=== PATIENT | female | born 1955 | race Caucasian/White ===

== ENCOUNTER 2017-08-14 01:41 | Emergency (ER) | payer OTHER ==
[~2017-08-14] VITALS: Ht 167.6 cm; Wt 102.7 kg
[~2017-08-14 01:41] MED LIST: BUSPIRONE HCL10 MG PO; IRON325 M1 PO; LOPRESSOR50 MG PO; NAPROSYN500 MG PO; PRILOSEC20 MG PO; PRINZIDE 20-121 EACH PO; SEROQUEL XR50 MG PO; SEROQUEL200 MG PO; SIMVASTATIN20 MG PO; TEGRETOL200 MG PO
[2017-08-14 02:37] LABS: BASOPHIL COUNT 0.1 K/uL (0-0.1); EOSINOPHIL (%) 0.9 % (0-5); EOSINOPHIL COUNT 0.1 K/uL (0-0.3); HEMATOCRIT 39.6 % (36.0-46.0); IMMATURE GRANULOCYTE (%) 0.6 % (0.0-0.7); IMMATURE GRANULOCYTE COUNT 0.1 K/uL; INSTRUMENT ABS NEUTROPHIL CT 8.4 K/uL; LYMPHOCYTE COUNT 4.2 K/uL (1.0-2.8); MCH 31.4 PG (29.0-34.0); MCHC 33.1 G/DL (30.0-36.0); MEAN PLAT.VOLUME 9.8 uM^3 (9.5-12.4); MONOCYTE (%) 7.8 % (3-12); MONOCYTE COUNT 1.1 K/uL (0-0.8); NEUTROPHIL (%) 60.5 % (45-76); NEUTROPHIL COUNT 8.4 K/uL (1.8-6.4); PLATELET COUNT 229 K/uL (156-360); RBC DIS.WIDTH-CV 12.5 % (11.8-14.6); RBC DIS.WIDTH-SD 43.8 % (39-53); RED BLOOD COUNT 4.17 M/uL (3.80-5.20); WHITE BLOOD COUNT 13.9 K/uL (4.1-10.2)
[2017-08-14 02:46] LABS: CHLORIDE 96 mEq/L (99-109); POTASSIUM 3.5 mEq/L (3.7-5.4); SODIUM 135 mEq/L (136-147)
[2017-08-14 02:48] LABS: GLUCOSE 113 mg/dL (70-99)
[2017-08-14 02:49] LABS: ANION GAP 13 MEQ/L (2-14)
[2017-08-14 02:50] LABS: TOTAL BILIRUBIN 0.3 mg/dL (0.0-1.0)
[2017-08-14 02:51] LABS: ALKALINE PHOSPHATASE 68 IU/L (3-129)
[2017-08-14 02:52] LABS: GFR ESTIMATE (CALCULATED) 44 mL/min/
[2017-08-14 02:53] LABS: UREA NITROGEN (BUN) 25 mg/dL (9-23)
[2017-08-14 02:55] LABS: CREATINE KINASE 65 IU/L (1-294); TOTAL CK 65 IU/L (1-294)
[2017-08-14 05:15] LABS: TROP-I INTERPRETATION NEGATIVE; TROPONIN-I < 0.01 ng/mL (0.0-0.30)
[2017-08-14 06:15] LABS: ADD MIUA? YES; BILIRUBIN NEGATIVE; BLOOD NEGATIVE; COLOR YELLOW ((YELLOW)); GLUCOSE (STRIP) NEGATIVE; KETONES NEGATIVE; LEUKOCYTES NEGATIVE; NITRITE NEGATIVE; PROTEIN (STRIP) NEGATIVE; UROBILINOGEN 0.2 MG/DL (0.2-1.0)
[2017-08-14] MEDS ORDERED: XANAX0.25 MG PO (06:19)
[2017-08-14] MEDS ORDERED: DEPAKOTE250 MG PO (06:20)
[2017-08-14] MEDS ORDERED: CALTRATE 600 +1 EAC2 PO (06:20)
[2017-08-14] MEDS ORDERED: DEPAKOTE500 MG PO (06:20)
[2017-08-14] MEDS ORDERED: MIRALAX17 GM PO (06:21)
[2017-08-14] MEDS ORDERED: MELOXICAM7.5 MG PO (06:21)
[2017-08-14 06:22] LABS: BACTERIA RARE /HPF; EPITHELIAL CELLS RARE /HPF; MUCUS TRACE /LPF; RED BLOOD CELLS 0-5 /HPF (0-5); UCUL ADDED? NO; WHITE BLOOD CELLS 0-5 /HPF (0-5)
[2017-08-14] MEDS ORDERED: TYLENOL REGULA325 MG PO (06:22)
[2017-08-14] MEDS ORDERED: EFFEXOR XR75 MG PO (06:22)
[2017-08-14] MEDS ORDERED: PERCOCET 5/31 TABLET PO (06:23)
[2017-08-14] MEDS ORDERED: NYATA15 GM TP (06:23)
[2017-08-14 06:31] LABS: TROP-I INTERPRETATION NEGATIVE; TROPONIN-I < 0.01 ng/mL (0.0-0.30)
[2017-08-14 09:21] VITALS: BP 102/67
== END 2017-08-14 09:22 | disposition home or self-care (01) ==
LOC: EME → EDBD 01:41 → EDSEX 01:41 → EME 09:22
PROVIDERS: Emergency Medicine
DX: R07.89 Other chest pain (principal); M79.672 Pain in left foot; M79.605 Pain in left leg; I10 Essential (primary) hypertension; E78.5 Hyperlipidemia, unspecified; F79 Unspecified intellectual disabilities; E66.9 Obesity, unspecified; Z68.36 Body mass index [BMI] 36.0-36.9, adult
CPT/HCPCS: 71010; 80053; 81003; 82550; 82553; 83735; 84484; 85025; 93005; 99281; 99284

== ENCOUNTER 2018-01-14 16:43 | Emergency (ER) | payer OTHER ==
[~2018-01-14] VITALS: Ht 167.6 cm; Wt 95.9 kg
[~2018-01-14 16:43] MED LIST changes: +CALTRATE 600 +1 EAC2 PO; +DEPAKOTE250 MG PO; +DEPAKOTE500 MG PO; +EFFEXOR XR75 MG PO; +MELOXICAM7.5 MG PO; +MIRALAX17 GM PO; +NYATA15 GM TP; +PERCOCET 5/31 TABLET PO; +TYLENOL REGULA325 MG PO; +XANAX0.25 MG PO
[2018-01-14 21:07] VITALS: BP 123/84
== END 2018-01-14 21:07 | disposition home or self-care (01) ==
LOC: EME 16:43
DX: S70.00XA Contusion of unspecified hip, initial encounter (principal); M25.551 Pain in right hip; M25.552 Pain in left hip; M25.562 Pain in left knee; W01.0XXA Fall on same level from slipping, tripping and stumbling without subsequent striking against object, initial encounter; F79 Unspecified intellectual disabilities; I10 Essential (primary) hypertension; E78.5 Hyperlipidemia, unspecified; E66.9 Obesity, unspecified; Z68.34 Body mass index [BMI] 34.0-34.9, adult
CPT/HCPCS: 73521; 73522; 73564; 99281; 99285